=== PATIENT | male | born 1980 | race American Indian/Alaskan Native ===

== ENCOUNTER 2016-10-30 11:11 | Emergency (ER) | payer SELFPAY ==
[2016-10-30 11:24] VITALS: BP 115/79
[2016-10-30 12:35] LABS: Bilirubin,Urine NEG (Negative); Blood,Urine NEG (Negative); Ketones,Urine NEG (Negative); Leukocyte Esterase,Urine NEG (Negative); Nitrite,Urine NEG (Negative); Protein,Urine <15 mg/dL mg/dL (Negative); Urobilinogen,Urine < 2.0 mg/dL (<2.0); WBC,Urine < 1.0 /HPF (0.0-6.0)
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
[2016-10-30] MEDS ORDERED: XYLOCAINE 1% MPF 5 mL INFILTRATI ONE (12:52)
[2016-10-30] MEDS ORDERED: ZITHROMAX PO ONE (12:52)
[2016-10-30] MEDS ORDERED: ROCEPHIN IM ONE (12:52)
== END 2016-10-30 13:28 | disposition home or self-care (01) ==
LOC: ED 11:11
DX: Z20.2 Contact with and (suspected) exposure to infections with a predominantly sexual mode of transmission (principal); F17.200 Nicotine dependence, unspecified, uncomplicated; F12.90 Cannabis use, unspecified, uncomplicated
CPT/HCPCS: 81001; 87591; 96372; 99283; J0696

== ENCOUNTER 2018-09-29 12:11 | Emergency (ER) | payer OTHER ==
[2018-09-29] MEDS ORDERED: IBUPROFEN PO ONE (15:01)
--- NOTE | 2018-09-29 15:54 | XRay Report ---
PROCEDURE: XR SPINE CERVICAL 2-3V HISTORY: neck pain FINDINGS: AP lateral and open-mouth views of the cervical spine were acquired and demonstrate no frac ture or malalignment of the cervical spine. The prevertebral soft tissues are within normal limits. T he intervertebral disc space heights appear preserved. IMPRESSION: No fracture is seen in the cervical spine This document is electronically signed by Shmuel Elizabeth MD., September 29 2018 03:52:00 PM ET
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
[2018-09-29 16:45] VITALS: BP 129/84
== END 2018-09-29 16:35 | disposition home or self-care (01) ==
LOC: ED 12:11
DX: S13.4XXA Sprain of ligaments of cervical spine, initial encounter (principal); F17.200 Nicotine dependence, unspecified, uncomplicated; Z91.013 Allergy to seafood; V89.2XXA Person injured in unspecified motor-vehicle accident, traffic, initial encounter; Y93.89 Activity, other specified; Y92.488 Other paved roadways as the place of occurrence of the external cause; Y99.8 Other external cause status
CPT/HCPCS: 72040; 99283

== ENCOUNTER 2021-12-10 21:47 | Emergency (ER) | payer BC, OTHER ==
[2021-12-11 01:28] LABS: Bilirubin,Urine NEG (Negative); Blood,Urine NEG (Negative); Color,Urine Yellow (Yellow); Protein,Urine <15 mg/dL mg/dL (Negative); Urobilinogen,Urine < 2.0 mg/dL (<2.0)
[2021-12-11 01:30] LABS: Mucus,Urine FEW /HPF
[2021-12-11] MEDS ORDERED: LIDOCAINE-MPF (1%) 10 MG/1 ML VIAL 5 ML INFILTRATI ONE (01:43)
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
[2021-12-11 02:16] VITALS: BP 126/80
== END 2021-12-11 02:17 | disposition home or self-care (01) ==
LOC: ED 21:47
DX: N39.0 Urinary tract infection, site not specified (principal); Z20.2 Contact with and (suspected) exposure to infections with a predominantly sexual mode of transmission; Z91.013 Allergy to seafood; F17.200 Nicotine dependence, unspecified, uncomplicated
CPT/HCPCS: 81001; 96372; 99283; J0696; J3490

== ENCOUNTER 2021-12-24 16:05 | Emergency (ER) | payer BC ==
[2021-12-24 18:14] VITALS: BP 128/78
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
== END 2021-12-24 19:30 | disposition home or self-care (01) ==
LOC: ED 16:05
DX: S46.912A Strain of unspecified muscle, fascia and tendon at shoulder and upper arm level, left arm, initial encounter (principal); F17.200 Nicotine dependence, unspecified, uncomplicated; Z91.018 Allergy to other foods; X58.XXXA Exposure to other specified factors, initial encounter; Y93.89 Activity, other specified; Y92.89 Other specified places as the place of occurrence of the external cause; Y99.8 Other external cause status
CPT/HCPCS: 99282